=== PATIENT | male | born 1960 | race Caucasian/White ===

== ENCOUNTER 2019-11-29 09:19 | Emergency (ER) | payer MEDICARE, SELFPAY ==
[2019-11-29 09:19] VITALS: BP 179/116; PULSE 64; RESP 16; TEMP 35.9; BMI 37.7
--- NOTE | 2019-11-29 09:36 | ED.VIS.GEN ---
History of Present Illness Informant: Patient, Significant Other Onset: Month(s) - 1 month Context: Gradual Onset Timing: Continuous Quality: Aching pain Location: Low back and left knee Current Severity: Severe Maximum Severity: Severe Worsened by: Movement and walking Relieved by: Nothing Associated Symptoms: Denies Narrative: 58-year-old male history of chronic back pain and chronic knee pain presents to the emergency department with an exacerbation of his chronic pain. Over the past 2 weeks he has had an injection in both his back and his knee and he is due to see a surgeon regarding possible left knee replacement. He is on tramadol through pain management but he is not having relief of his pain. The pain is in the same nature as his chronic pain. He has not had any further trauma or injury. No leg pain or swelling or fevers. No chest pain or shortness of breath. He is not lightheaded or dizzy. No nausea or vomiting. No diarrhea. He is not on blood thinners. No symptoms of bleeding. No upper respiratory symptoms. Prior similar symptoms: Yes Recent Illness/Hospitalization: No <Adrián Demarco - Last Filed: 11/29/19 10:27> <Ene Khan - Last Filed: 11/29/19 10:30> Chief Complaint: Lower Extremity Injury Past Medical History Prior records reviewed: Yes Past Medical History: - - Hypertension and bipolar disorder Surgical History: - - Right shoulder replacement Lives: With Family Smoking Status: Never smoker Alcohol: Occasional Drugs: None <Adrián Demarco - Last Filed: 11/29/19 10:27> <Ene Khan - Last Filed: 11/29/19 10:30> - Allergies and Home Meds Allergies/Adverse Reactions: Allergies No Known Allergies Allergy (Verified 11/29/19 09:21) Primary Care Physician: Jame Giordano MD [Primary Care Provider] - Review of Systems All systems negative except as indicated General: Denies: Chills, Fever, Sweats Eyes: Denies: Visual changes - bilaterally, Diplopia ENT: Denies: Rhinorrhea, Sore throat Cardiovascular: Denies: Chest pain, Palpitations Respiratory: Denies: Dyspnea, Cough, Dyspnea on exertion Gastrointestinal: Denies: Abdominal pain, Nausea, Vomiting, Diarrhea, Melena, Hematochezia Genitourinary: Denies: Dysuria, Hematuria, Frequency Musculoskeletal: Reports: Back pain, Swelling, Extremity Pain. Denies: Myalgias, Arthralgias, Neck pain Skin: Denies: Rash, Wounds Neurological: Denies: Headache, Weakness, Numbness <Adrián Demarco - Last Filed: 11/29/19 10:27> Physical Exam Vital Signs/Narrative: Vital Signs Temp Pulse Resp BP 11/29/19 09:19 96.7 F L 64 16 179/116 H Inital Vital Signs reviewed: Yes General: Well nourished, Well developed, No Acute Distress Head: Normocephalic, Atraumatic Eyes: Perrl, EOMI ENT: Moist mucous membranes, No rhinorrhea Neck: Supple, Nontender Cardiovascular: Regular rate, Regular rhythm, No murmurs Respiratory: No distress, CTA bilaterally, Chest nontender Abdomen: Soft, Nontender, Nondistended, Normal bowel sounds Back: Nontender, Normal Inspection, - - Patient has some left-sided lumbar paraspinal musculature tenderness to palpation. Straight leg raise positive on left and negative on right. He has 5 out of 5 strength testing of both lower extremities. DP and PT pulses are normal and symmetrical. Sensation of both lower extremities is normal.. Negative for: CVA tenderness, Spinal tenderness Extremities: Nontender, No edema, Tenderness, - - Patient has some mild swelling of his left knee no redness or warmth he has normal range of motion with flexion and extension actively.. Negative for: Edema, Calf Tenderness Skin: Normal color, No rash Neurological: Alert, Oriented x3, Cranial nerves II-XII grossly intact, Normal Strength, Normal Sensation Psychological: Normal affect, Normal Mood <Adrián Demarco - Last Filed: 11/29/19 10:27> Vital Signs/Narrative: Vital Signs Temp Pulse Resp BP 11/29/19 09:19 96.7 F L 64 16 179/116 H <Ene Khan - Last Filed: 11/29/19 10:30> Diagnostic/Tx/Re-eval - Medical Decision Making Patient is in pain management he sees Dr. Aiken he is on Ultram but it is not controlling his pain. He was given a dose of morphine advised unable to prescribe narcotics and he will follow-up next week with his doctor <Adrián Demarco - Last Filed: 11/29/19 10:27> - Medical Decision Making Patient seen with Adrián agree with history and physical as above, chronic left lower extremity pain extensive prior outpatient evaluation by multiple providers currently under pain management his Ultram is not helping nothing is really new or different on exam head neck chest abdomen remarkable left lower extremity exam is unremarkable he has full range of motion at the hip the knee the ankle and the foot no acute issues are apparent he assures me this is a chronic issue we have explained to him we cannot further manage his pain he is under the care of pain management he has had recent injections he has been on Ultram he has follow-up appointment scheduled for next week we will discuss pain management issues with him see the chart for full details <Ene Khan - Last Filed: 11/29/19 10:30> ED Disposition <Adrián Demarco - Last Filed: 11/29/19 10:27> <Ene Khan - Last Filed: 11/29/19 10:30> - Plan for ED Patient: Disposition: Home or Assisted Living Diagnosis: Chronic pain, Chronic pain of left knee, Chronic low back pain Instructions: ED Pain Management Chronic Referrals: Jame Giordano MD [Primary Care Provider] -
[2019-11-29] MEDS: morphine 10 MG/ML Syringe SC (10:05)
[2019-11-29 10:43] VITALS: BP 178/117; PULSE 58
--- NOTE | 2019-11-29 11:04 | ED.RN ---
Pt left before being registered. Attempted to call numbers listed and recording states pt temporarily unavailable. 2nd line rings and then someone answers and then hangs up with multiple tries.
== END 2019-11-29 10:45 | disposition home or self-care (01) ==
LOC: ED 13:27
PROVIDERS: Emergency Provider Physician Assistant Medical; PCP Family Medicine
DX: M25.562 Pain in left knee (principal); M54.5 Low back pain; G89.29 Other chronic pain; F31.9 Bipolar disorder, unspecified; I10 Essential (primary) hypertension; Z79.899 Other long term (current) drug therapy
CPT/HCPCS: 96372; 99282

== ENCOUNTER 2020-03-08 16:15 | Emergency (ER) | payer MEDICARE, SELFPAY ==
[2020-03-08 16:16] VITALS: BP 160/118; PULSE 84; RESP 15; TEMP 36.3; O2SAT 96; BMI 37.0
--- NOTE | 2020-03-08 16:35 | MRI_ITS ---
STUDY: MRI LUMBAR SPINE WITHOUT CONTRAST REASON FOR EXAM: Male, 59 years old. DDD TECHNIQUE: Standardized fat and water weighted pulse sequences were obtained in the sagittal and axial planes. COMPARISON: Lumbar spine x-ray dated June 28, 2016 FINDINGS: No visualized fracture line or compression deformity. No aggressive process. A small simple cyst of the right kidney is present and does not require any follow-up imaging. There is straightening of the normal lumbar lordosis. There is a dextroscoliosis of the lumbar spine. Normal conus medullaris that terminates at the T12. L1-2: Mild disc space narrowing without posterior bulge and herniation. A small anterior disc osteophyte complex is present. Normal bilateral facet joints. Normal central canal and bilateral lateral recesses. Normal bilateral intervertebral neural foramina. L2-3: Mild to moderate endplate degenerative changes are present. Mild disc space narrowing with a diffuse disc osteophyte complex asymmetric to the left contributing to left lateral recess stenosis and mild focal central canal stenosis. Normal right lateral recess. A superimposed left paracentral disc protrusion is present. The facet joints are mildly hypertrophied and degenerated. Normal bilateral intervertebral neural foramina. L3-4: Moderate to severe disc space narrowing with a diffuse disc osteophyte complex. There are minimal degenerative changes of the facet joints. Normal central canal and bilateral lateral recesses. Normal bilateral intervertebral neural foramina. L4-5: The disc spaces mildly narrowed and associated with a diffuse disc osteophyte complex. A large midline and left paracentral disc extrusion measuring 1.5 cm is present resulting in moderate central canal stenosis and bilateral lateral recess stenosis with nerve root compression. The facet joints are mildly hypertrophied. Normal bilateral intervertebral neural foramina. L5-S1: Normal endplates. The disc is desiccated. Normal disc height and morphology. The facet joints are mildly hypertrophied with minimal fluid distention. Normal central canal and bilateral lateral recesses. Normal bilateral intervertebral neural foramina. Normal visualized sacral ala. There is mild paraspinal muscular atrophy. MRI/Spine Lumbar (Routine) IMPRESSION: 1. Multilevel degenerative changes, as described above. 2. Moderate central canal stenosis at the L4-L5 level due to a large disc extrusion. Electronically Signed: Ernesto Kidd MD at 18:43 EDT , Service support ,
--- NOTE | 2020-03-08 16:37 | ED.DCSUM_ITS ---
- ER Visit Summary Date of Service: 03/08/20 Chief Complaint: [Back pain] History of Present Illness: The patient is a 59 M [presents to the emergency department with almost 2-week history of left low back pain with pain radiating down his left leg. Patient denies any direct trauma. Patient was attempting to pack and get ready for a trip when he started having some discomfort that progressively worsened. Patient went to the [facility] and had severe pain and was seen at a facility there by her chiropractor and was treated with steroids and Toradol. Patient also received a prescription for hydrocodone. Patient having a hard time walking without a cane now and at times has been incontinent of urine if he can immediately get to the bathroom. Patient denies any weakness in the extremity. Patient does describe a severe burning sensation down his left leg. Patient states that he had an MRI in September of this year that showed degenerative disc disease. He has had no fevers. Patient has history of hypertension. Patient had a hard time sleeping at night.] Physical Examination: [HEENT-PERRLA, EOMI. Cranial nerves II through XII grossly intact. TMs clear. Mucous membranes moist. No adenopathy. Cardiovascular-regular rate and rhythm without murmur or ectopy Lungs-clear to auscultation, chest wall stable without crepitus or subcu emphysema Abdomen-normoactive bowel sounds, soft, nontender, no rebound or rigidity, no peritoneal signs. Back exam-patient has diffuse tenderness over the lumbar spine and lumbar paraspinal musculature on the left. Patient has some pain with straight leg raising at approximately 45 degrees while sitting. Deep tendon reflexes somewhat diminished at the left patella compared to the right and was plus 1 out of 4 compared to plus 2 out of 4 on the right. Patient has normal 5 extension bilaterally. Patient has normal sensation to light touch. No saddle anesthesia. Extremities-intact ?4, normal range of motion, normal pulses, atraumatic] Test Results: [MRI of the lumbar spine obtained was read by radiology as #1 multilevel degenerative changes. #2 moderate central canal stenosis at the level of L4-5 due to a large disc extrusion.] Emergency Department Course and Treatment: [Patient had an IV line established. He was medicated with Dilaudid and Zofran as well as Valium. Patient did feel significantly improved after treatment.] Treatment Plan: [Patient and his would like to follow-up with back surgeon at [facility] and they have a referral they are just waiting to schedule an appointment. At this point they do not want to be admitted for pain control. There are no signs of cauda equina and I feel patient can follow-up as an outpatient. We will manage his pain with Medrol Dosepak and a prescription for Percocet.] Disposition: [Discharged home in stable condition] Impression: [Lumbar radiculopathy Disc herniation L4-5 level] This note was generated with [employer]ue[employer] dictation software. It may contain incorrect words, spelling, and punctuation that were not noted in review of the chart prior to signing ED Disposition - Plan for ED Patient: Referrals: Jame Giordano MD [Primary Care Provider] -
--- NOTE | 2020-03-08 17:19 | ED.RN ---
unable to get computer in room to work. all meds verified with kevin costa. charge nurse aware. multiple attempts to reboot computer
[2020-03-08] MEDS: diazePAM 2 MG Tablet 4 MG PO (17:20)
[2020-03-08] MEDS: Ketorolac 15 MG/ML Vial IV (17:20)
[2020-03-08] MEDS: HYDROmorphone 1 MG/ML Syringe IV (17:20)
[2020-03-08] MEDS: Ondansetron 4 MG/2 ML Vial IV (17:21)
--- NOTE | 2020-03-08 17:22 | ED.RN ---
MRI PAPERWORK COMPLETED AND FAXED PER [employer]
--- NOTE | 2020-03-08 19:03 | ED.RN ---
RADIOLOGY TO BRING MRI DISC OVER FOR PATIENT
--- NOTE | 2020-03-08 19:04 | ED.DEP ---
ED Disposition - Plan for ED Patient: Instructions: ED LUMBAR RADICULOPATHY Prescriptions: MethylPREDNISolone DosePak [Medrol DosePak] 4 mg PO UD #1 box Prescription Printed Oxycodone HCl/Acetaminophen [Percocet 5/325] 1 tab PO Q6H PRN PRN 5 Days #20 tab PRN Reason: Pain Score 4-10/10 Prescription Printed Referrals: Jame Giordano MD [Primary Care Provider] - Additional Instructions: see your back surgeon as soon as possible
[2020-03-08 19:17] VITALS: BP 139/96; PULSE 83; RESP 16; O2SAT 94
== END 2020-03-08 19:18 | disposition home or self-care (01) ==
LOC: ED 17:23
PROVIDERS: Emergency Provider Emergency Medicine; PCP Family Medicine
DX: M51.16 Intervertebral disc disorders with radiculopathy, lumbar region (principal); M48.061 Spinal stenosis, lumbar region without neurogenic claudication; I10 Essential (primary) hypertension; M06.9 Rheumatoid arthritis, unspecified; Z79.899 Other long term (current) drug therapy
CPT/HCPCS: 72148; 96374; 96375; 99284; A4216; J2405

== ENCOUNTER 2020-03-11 18:40 | Emergency (ER) | payer MEDICARE, SELFPAY ==
[2020-03-11 18:41] VITALS: BP 147/118; PULSE 85; RESP 18; TEMP 36.7; O2SAT 97; BMI 36.3
--- NOTE | 2020-03-11 19:37 | ED.DCSUM_ITS ---
History of Present Illness Chief Complaint: Back Informant: Patient Narrative: Patient is a 59-year-old male who presents to the emergency department for lower back pain. He was seen in the emergency department 3 days ago and diagnosed with spinal stenosis and disc herniation. He was sent home with Percocet and Medrol Dosepak which has not been giving him good relief. He currently rates the pain as severe. The pain does go down the left leg and he has a tingling/burning sensation on top of his left foot. Any saddle anesthesia. No urinary incontinence/retention. No fevers or chills. He did make an appointment with the [facility] but could not get an appointment until April 05. He has had back issues before in the past. He used to previously get joint injections. Past Medical History - Allergies and Home Meds Allergies/Adverse Reactions: Allergies No Known Allergies Allergy (Verified 03/11/20 18:41) Primary Care Physician: Jame Giordano MD [Primary Care Provider] - Surgical History: - - Right shoulder replacement Smoking Status: Never smoker Review of Systems All systems negative except as indicated General: Denies: Chills, Fever, Sweats Eyes: Denies: Visual changes - bilaterally, Diplopia ENT: Denies: Rhinorrhea, Sore throat Cardiovascular: Denies: Chest pain, Palpitations Respiratory: Denies: Dyspnea, Cough, Dyspnea on exertion Gastrointestinal: Denies: Abdominal pain, Nausea, Vomiting, Diarrhea Genitourinary: Denies: Dysuria, Hematuria, Frequency Musculoskeletal: Reports: Back pain. Denies: Neck pain, Extremity Pain Skin: Denies: Rash, Wounds Neurological: Denies: Headache, Weakness, Numbness Physical Exam Vital Signs/Narrative: Vital Signs Temp Pulse Resp BP Pulse Ox 03/11/20 18:41 98.0 F 85 18 147/118 H 97 Inital Vital Signs reviewed: Yes General: Well nourished, Well developed, No Acute Distress Head: Normocephalic, Atraumatic Eyes: Perrl, EOMI ENT: Moist mucous membranes, No rhinorrhea Neck: Supple, Nontender Cardiovascular: Regular rate, Regular rhythm, No murmurs Respiratory: No distress, CTA bilaterally, Chest nontender Abdomen: Soft, Nontender, Nondistended, Normal bowel sounds Back: Normal Inspection, - - Pain to the left paraspinal musculature in the lumbar region. Some pain near the piriformis. Otherwise neurovascularly intact.. Negative for: Spinal tenderness Extremities: Nontender, No edema Skin: Normal color, No rash Neurological: Alert, Oriented x3, Cranial nerves II-XII grossly intact, Normal Strength, Normal Sensation Psychological: Normal affect, Normal Mood Diagnostic/Tx/Re-eval - Medical Decision Making Patient presents to the emergency department for back pain. He has been failing outpatient treatment with Percocet and Medrol Dosepak as he still having significant pain. Will give dose of hydromorphone here. He did have an MRI 3 days ago. He does not have any red flag symptoms for acute surgical emergency. Patient offered hospitalization but understands that he would not get a full neurosurgical evaluation for definitive treatment here. I did call the [facility] and spoke with the nurse environmental health safety manager. Patient does have an appointment but not until mid to late March. He can call Saturday morning and potentially get into see a different surgeon. Patient is agreeable with this plan. I will add a fentanyl patch. He understands he is not to take the Percocet until he has the fentanyl patches on for at least 6 hours to see how this affects him. We will also write a prescription for the lidocaine patch. He can continue to take the Medrol Dosepak. Warning signs and symptoms for which to return to the ED are reviewed with him. He understands and is agreeable this plan. Patient discharged home in stable condition. ED Disposition - Plan for ED Patient: Disposition: Home or Assisted Living Diagnosis: Low back pain, Sciatica Instructions: ED Back Care Tips, ED Back Pain Acute or Chronic Prescriptions: fentaNYL patch [Duragesic patch] 25 mcg TRANSDERM. Q72H 3 Days #1 patch Transmission Status: Received by Host Committee #30 Lidocaine [Lidoderm Patch] 1 patch TOPICAL DAILY 5 Days #5 patch Transmission Status: Received by Host Committee #30 Referrals: Jame Giordano MD [Primary Care Provider] -
[2020-03-11] MEDS: HYDROmorphone 1 MG/ML Syringe IM ×2 (19:45→20:55)
[2020-03-11] MEDS: diazePAM 2 MG Tablet 4 MG PO (20:45)
[2020-03-11 20:48] VITALS: PULSE 83; RESP 15; O2SAT 94
[2020-03-11 21:19] VITALS: BP 210/138; PULSE 85; RESP 17; O2SAT 95
--- NOTE | 2020-03-11 21:50 | ED.RN ---
Dr. Barreto aware of high bp at discharge, no new orders at this time. pt d/c.
== END 2020-03-11 21:56 | disposition home or self-care (01) ==
PROVIDERS: Emergency Provider Emergency Medicine; PCP Family Medicine
DX: M54.42 Lumbago with sciatica, left side (principal); M48.00 Spinal stenosis, site unspecified; Z96.611 Presence of right artificial shoulder joint
CPT/HCPCS: 96372; 99283

== ENCOUNTER 2023-02-22 15:02 | Emergency (ER) | payer MEDICARE, SELFPAY ==
[2023-02-22 15:03] VITALS: BP 165/89; PULSE 81; RESP 16; O2SAT 98
[2023-02-22 15:04] VITALS: PULSE 91; RESP 18; TEMP 36.4; O2SAT 99
--- NOTE | 2023-02-22 15:04 | NURSING ---
[id number] STROKE ALERT CALLED
--- NOTE | 2023-02-22 15:04 | NURSING ---
NO OLD EKGS
--- NOTE | 2023-02-22 15:16 | EX.ED.DYSGE1 ---
HPI History of Present Illness Chief Complaint: Neuro S/Sx Informant: patient Narrative Narrative: Patient 62-year-old male presenting with facial droop on the right. Patient states he has had a hard time swallowing a pill around noon. He woke up and his face was asymmetric. He came to the emergency room. He also states he was just put on meclizine for vertigo. Is been having intermittent dizziness worse with movement for the past week. He saw his PCP for this yesterday. Currently is not having any dizziness. Does not report any vision changes, numbness, weakness or speech changes. Denies any fever or chills. No other complaints or concerns at this time. [facility] Medical History Bipolar 1 disorder Diabetes mellitus Hyperlipidemia Hypertension Vertigo Home Medications divalproex 500 mg tablet,delayed release 500 mg PO BID 11/29/19 [History Last Taken Unknown] ergocalciferol (vitamin D2) 1,250 mcg (50,000 unit) capsule 50,000 unit PO Q14D 11/29/19 [History Last Taken Unknown] ferrous sulfate 325 mg (65 mg iron) tablet 325 mg PO DAILY 11/29/19 [History Last Taken Unknown] losartan 100 mg-hydrochlorothiazide 25 mg tablet 1 ea PO DAILY 11/29/19 [History Last Taken Unknown] meloxicam 7.5 mg tablet 7.5 mg PO DAILY 11/29/19 [History Last Taken Unknown] tramadol 50 mg tablet 50 mg PO BID 11/29/19 [History Last Taken Unknown] methylprednisolone 4 mg tablets in a dose pack 4 mg PO UD ##1 03/08/20 [Rx Last Taken Unknown] amlodipine 10 mg tablet mg 02/22/23 [History Last Taken Unknown] metformin 1,000 mg tablet mg 02/22/23 [History Last Taken Unknown] prednisone 20 mg tablet 40 mg (2 x 20 mg) PO DAILY #8 tabs 02/22/23 [Rx Last Taken Unknown] valacyclovir 1 gram tablet 1,000 mg PO Q8H #21 tabs 02/22/23 [Rx Last Taken Unknown] Allergy/AdvReac Type Severity Reaction Status Date / Time No Known Allergies Allergy Verified 03/11/20 18:41 Social History Smoking Status: Never smoker ROS ROS ED Constitutional Constitutional ED: Denies chills or fever(s) Eyes Eyes: Reports other Details: Difficulty closing right eye lid ; Denies blurry vision or change in vision ENT ENT ED: Reports other Details: Dry mouth ; Denies rhinorrhea or sore throat Cardiovascular Cardiovascular: Denies chest pain Respiratory/Chest Respiratory/Chest: Denies cough or dyspnea Gastrointestinal Gastrointestinal: Denies nausea or vomiting Musculoskeletal Musculoskeletal: Denies arthralgias or myalgias Integumentary Denies rash Neurologic Neurologic: Denies headache(s), paresthesias or weakness Psychiatric Psychiatric: Denies anxiety EXAM Physical Exam Const Vital Signs: 02/22/23 15:04 02/22/23 15:03 Temperature 97.6 F L Temperature Source Temporal Pulse Rate 91 81 Respiratory Rate 18 16 Blood Pressure 165/89 H Blood Pressure Mean 114 Pulse Ox 99 98 Oxygen Delivery Method Room Air Room Air Positive well nourished and well developed General Appearance ED: well developed and NAD HEENT Reports TM's clear HEENT Narrative: Mildly dry mucosal membranes. Uvula midline. No tongue deviation appreciated. Right-sided facial nerve palsy present with involvement of the forehead. Tympanic Membrane ED: Yes TM's clear Eyes PERRL and EOMs intact bilaterally Eyes Narrative: Difficulty closing the right eye completely but is able to do with some effort Neck supple Chest Wall inspection of chest normal and palpation of chest normal Resp normal respiratory effort and clear to auscultation bilaterally Cardio regular rate, regular rhythm and no murmurs GI normal to inspection, nondistended, normoactive bowel sounds Extremity normal to inspection General Extremety ED: Negative for edema or tenderness General Extremity: Negative for edema Neuro oriented x3 and no sensory deficits noted Neuro Narrative: Right-sided facial nerve palsy. Other cranial nerves intact. NIH equals 1 for a symmetric face. Normal coordination with normal [id number] and normal gait. Normal gaze. No visual field cut. No dysarthria Sensorium / Orientation: alert Motor Exam: strength 5/5 throughout Psych mental status grossly normal Skin no rashes or lesions noted MDM MDM MDM Narrative Medical decision making narrative: Patient evaluated for right-sided facial droop. Patient's physical exam highly consistent with Conner's palsy. He has no other neurologic deficits more concerning for a central process. If believe this is a peripheral feature. I question if some of his difficulty swallowing was from dry mouth associated with starting meclizine. Will be placed on prednisone as well as valacyclovir. Patient does have a history of [id number] diabetes mellitus. Discussed the risk and benefits of starting steroids and he is agreeable with taking a course of prednisone. We will follow-up closely with his PCP for blood sugar monitoring. Given return precautions. Patient currently does not have any difficulty swallowing in the emergency room. Counseled that typical course of Conner's palsy and on using eyedrops as well as patching at night to help prevent corneal abrasion. Discharge Plan Triage Chief Complaint: Neuro S/Sx ED Provider: Radha Cole Dx/Rx/DC Orders Clinical Impression: Right-sided Conner's palsy Instructions: ED Conner's Palsy Prescriptions: New prednisone 20 mg tablet 40 mg PO DAILY Qty: 8 0RF valacyclovir 1 gram tablet 1,000 mg PO Q8H Qty: 21 0RF No Action divalproex 500 MG tablet,delayed release (DR/EC) 500 mg PO BID tramadol 50 MG tablet 50 mg PO BID meloxicam 7.5 MG tablet 7.5 mg PO DAILY losartan-hydrochlorothiazide 1 EACH tablet 1 ea PO DAILY ferrous sulfate 325 MG tablet 325 mg PO DAILY ergocalciferol (vitamin D2) 50,000 UNIT capsule 50,000 unit PO Q14D methylprednisolone 4 MG tablets,dose pack 4 mg PO UD Qty: 1 0RF amlodipine 10 mg tablet metformin 1,000 mg tablet Patient Comments: TAKE 1 TABLET BY MOUTH TWICE DAILY (NOON MEAL AND EVENING MEAL) Primary Care Provider: Jame Giordano Referrals: Jame Giordano MD [Primary Care Provider] - Activity Restrictions/Additional Instructions: Please patch your eye at night to help prevent scratches to your eyeball. Use eyedrops throughout the day as your eye likely will dry out. I recommend Systane brand. I do not think you had a stroke and I think this is what is called a peripheral nerve palsy. If you do develop any new neurologic symptoms such as numbness, focal weakness on one side of the body or the other or acute vision changes please return immediately to the emergency room Disposition Disposition: Home, Self Care
[2023-02-22] MEDS: predniSONE 20 MG Tablet 60 MG PO (15:32)
[2023-02-24 07:38] LABS: Bedside Glucose 218 mg/dL (74-106)
== END 2023-02-22 15:34 | disposition home or self-care (01) ==
PROVIDERS: Emergency Provider Emergency Medicine; PCP Family Medicine; Visit Provider Emergency Medicine
DX: G51.0 Bell's palsy (principal); F31.9 Bipolar disorder, unspecified; E11.9 Type 2 diabetes mellitus without complications; E78.5 Hyperlipidemia, unspecified; I10 Essential (primary) hypertension; Z79.899 Other long term (current) drug therapy; Z79.84 Long term (current) use of oral hypoglycemic drugs
CPT/HCPCS: 82962; 99283

== ENCOUNTER 2023-09-22 16:02 | Emergency (ER) | payer MEDICARE, SELFPAY ==
[2023-09-22 16:03] VITALS: BP 173/107; PULSE 105; RESP 16; TEMP 36.6; O2SAT 92; BMI 34.0
--- NOTE | 2023-09-22 16:17 | EDS_ITS ---
HPI <MARIA DEL ROSARIO Colindres - Last Filed: 09/22/23 16:23> History of Present Illness Chief Complaint: Bite Narrative Narrative: Patient [place] and after he got home he noticed a tick on his right mid back. His removed it and states she got the entire thing out. About a week ago he noticed the area was red. Today it felt more itchy so she looked at it again and there is a large red circular rash. Over last couple days the patient has had subjective fever, nausea, and increased joint aching. He is rheumatoid arthritis but states it is a clear than usual. PFS <MARIA DEL ROSARIO Colindres - Last Filed: 09/22/23 16:23> [facility] Medical History Bipolar 1 disorder Diabetes mellitus Hyperlipidemia Hypertension Vertigo Home Medications divalproex 500 mg tablet,delayed release 1,000 mg PO BID 11/29/19 [History Last Taken Unknown] ergocalciferol (vitamin D2) 1,250 mcg (50,000 unit) capsule 50,000 unit PO Q14D 11/29/19 [History Last Taken Unknown] ferrous sulfate 325 mg (65 mg iron) tablet 325 mg PO DAILY 11/29/19 [History Last Taken Unknown] amlodipine 10 mg tablet 10 mg PO DAILY 02/22/23 [History Last Taken Unknown] metformin 1,000 mg tablet 1,000 mg PO BID 02/22/23 [History Last Taken Unknown] allopurinol 300 mg tablet 300 mg PO DAILY 09/22/23 [History Last Taken Unknown] aspirin 81 mg capsule 81 mg PO DAILY 09/22/23 [History Last Taken Unknown] doxycycline hyclate 100 mg capsule 100 mg PO BID 10 days #20 caps 09/22/23 [Rx Last Taken Unknown] hydrochlorothiazide 25 mg tablet 25 mg PO DAILY 09/22/23 [History Last Taken Unknown] losartan 100 mg tablet 100 mg PO DAILY 09/22/23 [History Last Taken Unknown] ropinirole 4 mg tablet 4 mg PO QHS PRN PRN restless legs 09/22/23 [History Last Taken Unknown] rosuvastatin 20 mg tablet 20 mg PO QHS 09/22/23 [History Last Taken Unknown] tamsulosin 0.4 mg capsule 0.4 mg PO DAILY 09/22/23 [History Last Taken Unknown] Allergy/AdvReac Type Severity Reaction Status Date / Time No Known Allergies Allergy Verified 09/22/23 16:05 Social History Smoking Status: Never smoker ROS <MARIA DEL ROSARIO Colindres - Last Filed: 09/22/23 16:23> ROS ED ROS Narrative Constitutional: Positive for chills, malaise. ENT: Negative for sore throat, ear pain, rhinorrhea. CVS: Negative for chest pain. Respiratory: Negative for shortness of breath. GI: Positive for nausea, no vomiting. : Negative for dysuria. Neuro: Negative for headache. EXAM <MARIA DEL ROSARIO Colindres - Last Filed: 09/22/23 16:23> Physical Exam Narrative Exam Narrative: CONST: Patient sitting in no acute distress. NECK: Normal inspection. RESP: No respiratory distress, CTAB. CVS: Regular rate and rhythm, no murmur, no gallop. SKIN: Right mid back there is a circular area of erythema with central dot where the tick was located previously. There is no fluctuance or crepitus, no lymphangitic streaking, no skin sloughing. EXTREMITIES: Normal appearance, no pedal edema. NEURO: Alert and answering questions appropriately. PSYCH: Normal affect. Const Vital Signs: 09/22/23 16:03 Temperature 97.8 F Temperature Source Temporal Pulse Rate 105 H Respiratory Rate 16 Blood Pressure 173/107 H Blood Pressure Mean 129 Pulse Ox 92 Oxygen Delivery Method Room Air <Dr. Paulino Rosales MD - Last Filed: 09/22/23 16:40> Physical Exam Const Vital Signs: 09/22/23 16:03 Temperature 97.8 F Temperature Source Temporal Pulse Rate 105 H Respiratory Rate 16 Blood Pressure 173/107 H Blood Pressure Mean 129 Pulse Ox 92 Oxygen Delivery Method Room Air MDM <MARIA DEL ROSARIO Colindres - Last Filed: 09/22/23 16:23> MDM MDM Narrative Medical decision making narrative: History gathered from: Patient and Patient has a history of a tick bite to his right mid back 2 weeks ago. The tick was completely removed but he has developed a red circular area of rash. There is no evidence of abscess. Although there is no central clearing classic with erythema migrans based on his history and reported symptoms of subjective fever, chills, and joint aches with a rash present he will be treated for potential Lyme disease as well as coverage for cellulitis with doxycycline x 10 days. Lyme testing was sent and his doctor will need to follow-up on the results. Patient was discharged in stable condition. <Dr. Paulino Rosales MD - Last Filed: 09/22/23 16:40> [facility] Narrative Medical decision making narrative: History gathered from: Patient and Patient has a history of a tick bite to his right mid back 2 weeks ago. The tick was completely removed but he has developed a red circular area of rash. There is no evidence of abscess. Although there is no central clearing classic with erythema migrans based on his history and reported symptoms of subjective f ever, chills, and joint aches with a rash present he will be treated for potential Lyme disease as well as coverage for cellulitis with doxycycline x 10 days. Lyme testing was sent and his doctor will need to follow-up on the results. Patient was discharged in stable condition. I have personally performed a face to face assessment of the patient and have reviewed the JUAN Note. I performed a substantive portion of the visit including all aspects of the following. My chaparro findings include: History is 62-year-old male history of rheumatoid arthritis. Currently not on any medication for that. About 2 weeks and 2 days ago he had a tick bite on his back his removed it. It was not engorged. For the last several days he has had myalgias. There is a red kake around where the tick bite was with about 3 inches in diameter. No pus or discharge. He has had some myalgias. Exam is [well-appearing 62-year-old male. Vital signs stable afebrile. He does not look septic or toxic. He is in no distress. H EENT exam unremarkable. Neck nontender no lymphadenopathy. Lungs clear to auscultation bilaterally. Heart regular rhythm no murmur appreciated. Rate about 100. Abdomen soft no ntender. Moving all 4 extremities. Nontender. No edema. No redness. Neurologically is awake alert no focal motor deficits. Back on his right mid back there is an area of a tick bite there is no pus or discharge. There is no fluctuance. There is a kake of redness around the wound is about 3 inches diameter which could be cellulitis or early infection. There is no abscess to drain. I do not see any other parts left of the tick.] Medical Decision Making [patient was started on doxycycline first dose given here. 100 twice daily for 10 days. Outpatient follow-up with his primary care physician.] Other additions or changes: [None] Discharge Plan Triage Chief Complaint: Bite ED Midlevel Provider: Vero Mercado ED Provider: Paulino Rosales Dx/Rx/DC Orders Clinical Impression: Myalgia, Rash of back Instructions: ED Tick Bite, Antibiotic Treatment Prescriptions: New doxycycline hyclate 100 mg capsule 100 mg PO BID 10 Days Qty: 20 0RF No Action divalproex 500 MG tablet,delayed release (DR/EC) 1,000 mg PO BID ferrous sulfate 325 MG tablet 325 mg PO DAILY ergocalciferol (vitamin D2) 50,000 UNIT capsule 50,000 unit PO Q14D amlodipine 10 mg tablet 10 mg PO DAILY metformin 1,000 mg tablet 1,000 mg PO BID Patient Comments: TAKE 1 TABLET BY MOUTH TWICE DAILY (NOON MEAL AND EVENING MEAL) aspirin 81 mg capsule 81 mg PO DAILY allopurinol 300 mg tablet 300 mg PO DAILY losartan 100 mg tablet 100 mg PO DAILY tamsulosin 0.4 mg capsule 0.4 mg PO DAILY hydrochlorothiazide 25 mg tablet 25 mg PO DAILY ropinirole 4 mg tablet 4 mg PO QHS PRN PRN (Reason: restless legs) rosuvastatin 20 mg tablet 20 mg PO QHS Primary Care Provider: Jame Giordano Referrals: Jame Giordano MD [Primary Care Provider] - Activity Restrictions/Additional Instructions: This could be just a localized skin infection from the tick bite or a rash from Lyme disease. Please have your doctor follow-up on the Lyme testing that was sent. Take the doxycycline as prescribed. Disposition Disposition: Home, Self Care
[2023-09-22] MEDS: Doxycycline 100 MG CAPSULE PO (16:25)
[2023-09-22 16:47] VITALS: BP 140/88; PULSE 87; RESP 16; TEMP 37; O2SAT 99
[2023-09-25 00:07] LABS: Lyme IgG P18 Ab Absent (.); Lyme IgG P23 Ab Absent (.); Lyme IgG P28 Ab Absent (.); Lyme IgG P30 Ab Absent (.); Lyme IgG P39 Ab Absent (.); Lyme IgG P41 Ab Present (.); Lyme IgG P45 Ab Absent (.); Lyme IgG P58 Ab Absent (.); Lyme IgG P66 Ab Absent (.); Lyme IgG P93 Ab Absent (.); Lyme IgG WB Interpretation Negative (.); Lyme IgM P23 Ab Absent (.); Lyme IgM P39 Ab Absent (.); Lyme IgM P41 Ab Absent (.); Lyme IgM WB Interpretation Negative (.)
== END 2023-09-22 16:48 | disposition home or self-care (01) ==
PROVIDERS: Emergency Provider Emergency Medicine; PCP Family Medicine; Visit Provider Emergency Medicine
DX: R21 Rash and other nonspecific skin eruption (principal); F31.9 Bipolar disorder, unspecified; E11.9 Type 2 diabetes mellitus without complications; M79.10 Myalgia, unspecified site; I10 Essential (primary) hypertension; E78.5 Hyperlipidemia, unspecified; Z79.899 Other long term (current) drug therapy; Z79.84 Long term (current) use of oral hypoglycemic drugs
CPT/HCPCS: 86617; 99282

== ENCOUNTER → 2024-04-08 | Outpatient (CLI) | payer MEDICARE, SELFPAY ==
--- NOTE | 2024-04-08 12:50 | RAD_ITS ---
INDICATION: R HIP OA EXAMINATION/TECHNIQUE: X-RAY - XR Hip Unilateral with Pelvis when performed; 3 Views COMPARISON: FINDINGS: PELVIC BONES: No displaced fracture, destructive or sclerotic lesions. Note that overlapping bowel shadows may however obscure fine detail. Sacroiliac joints are unremarkable. No widening of the pubic symphysis. HIPS: The articular structures are unremarkable. No displaced fracture seen in this frontal view. SOFT TISSUES: Soft tissue calcifications are present bilaterally in the proximal level of the thighs. RAD/HIP, UNI W/ Pelvis 2-3 Views IMPRESSION: No evidence of displaced pelvic or hip fracture. Electronically Signed: Osman Crawford DO at 16:28 EDT Reading Location ID and State: [facility] / [place] Tel [phone], Service support ,
== END | disposition home or self-care (01) ==
LOC: RAD 12:41
PROVIDERS: PCP Family Medicine; Referring Provider Anesthesiology Pain Medicine; Visit Provider Anesthesiology Pain Medicine
DX: M16.11 Unilateral primary osteoarthritis, right hip (principal)
CPT/HCPCS: 73502

== ENCOUNTER → 2024-05-06 | Outpatient (CLI) | payer MEDICARE, SELFPAY ==
[2024-05-06 14:14] LABS: Amphetamine Urine VISTA NEGATIVE (<1000 ng/mL); Barbiturate Urine VISTA NEGATIVE (< 200 ng/mL); Benzodiazepine Urine VISTA NEGATIVE (< 200 ng/mL); Cocaine Urine VISTA NEGATIVE (< 300 ng/mL); Ecstacy Urine VISTA NEGATIVE (< 500 ng/mL); Methadone Urine VISTA NEGATIVE (< 300 ng/mL); PCP Urine VISTA NEGATIVE (< 25 ng/mL); THC Urine VISTA NEGATIVE (< 50 ng/mL); Vista UDS pH Range 4
== END | disposition home or self-care (01) ==
PROVIDERS: PCP Family Medicine; Referring Provider Anesthesiology Pain Medicine; Visit Provider Anesthesiology Pain Medicine
DX: F11.20 Opioid dependence, uncomplicated (principal)
CPT/HCPCS: 80307

== ENCOUNTER → 2024-10-08 | Outpatient (CLI) | payer MEDICARE, SELFPAY ==
[2024-10-08 13:09] LABS: Amphetamine Urine NEGATIVE (<1000 ng/mL); Barbiturate Urine NEGATIVE (< 200 ng/mL); Benzodiazepine Urine NEGATIVE (< 200 ng/mL); Buprenorphine Urine NEGATIVE (< 200 ng/mL); Cocaine Urine NEGATIVE (< 300 ng/mL); Fentanyl, Urine NEGATIVE; Methadone Urine NEGATIVE (< 300 ng/mL); Opiates Urine PRESUMPTIVE POSITIVE (< 300 ng/mL); Oxycodone, Urine NEGATIVE (< 100 ng/mL); PCP Urine NEGATIVE (< 25 ng/mL); THC Urine NEGATIVE (< 50 ng/mL)
== END | disposition home or self-care (01) ==
PROVIDERS: PCP Family Medicine; Referring Provider Anesthesiology Pain Medicine; Visit Provider Anesthesiology Pain Medicine
DX: F11.20 Opioid dependence, uncomplicated (principal)
CPT/HCPCS: 80307